=== PATIENT | male | born 1995 | race Two or more races ===

== ENCOUNTER 2021-06-25 00:13 | Emergency (ER) | payer SELFPAY ==
[~2021-06-25] VITALS: Ht 177.8 cm; Wt 90.3 kg
[2021-06-25] MEDS ORDERED: SODIUM CHLORIDE FLUSH 10ML SYR IVF ONE (01:00)
[2021-06-25] MEDS ORDERED: ONDANSETRON 2MG/ML, 2ML IVPush ONE (01:00)
[2021-06-25] MEDS ORDERED: MORPHINE SULFATE 4 MG/ML, 1ML IVPush PRN (01:00)
[2021-06-25 01:26] LABS: BASOPHILS % (AUTO) 1 % (0-1); EOSINOPHILS % (AUTO) 1 % (1-7); LYMPHOCYTES % (AUTO) 19 % (22-44); MEAN CORPUSCULAR HEMOGLOBIN 32.4 pg (27.5-34.5); MEAN CORPUSCULAR HGB CONC 34.6 g/dL (33.2-36.2); MEAN PLATELET VOLUME 7.7 fL (7.4-10.4); MONOCYTES % (AUTO) 9 % (2-9); NEUTROPHILS % (AUTO) 70 % (42-75); PLATELET COUNT 341 x10^3/uL (130-400); RED BLOOD COUNT 5.12 x10^6/uL (4.38-5.82); RED CELL DISTRIBUTION WIDTH 14.2 % (9.4-14.8)
[2021-06-25 01:35] LABS: ALANINE AMINOTRANSFERASE 75 U/L (12-78); ALBUMIN 3.9 g/dL (3.4-5.0); ANION GAP 6 mmol/L (5-15); CALCIUM 8.5 mg/dL (8.5-10.1); CHLORIDE 102 mmol/L (98-107); CREATININE 0.95 mg/dL (0.7-1.3)
[2021-06-25 01:37] LABS: ALKALINE PHOSPHATASE 109 U/L (45-117); BILIRUBIN,TOTAL 0.4 mg/dL (0.2-1.0); TOTAL PROTEIN 8.4 g/dL (6.4-8.2)
[2021-06-25] MEDS ORDERED: ONDANSETRON 2MG/ML, 2ML ONE (02:47)
[2021-06-25] MEDS ORDERED: MORPHINE SULFATE 4 MG/ML, 1ML ONE (02:48)
--- NOTE | 2021-06-25 02:52 | NUR ---
assessment made. IV placed. medicated. patient to CT scan.
--- NOTE | 2021-06-25 02:58 | NUR ---
back from CT Scan. awaiting result.
[2021-06-25 04:27] VITALS: BP 136/82
[2021-06-25] MEDS ORDERED: OMNIPAQUE 350 MG/ML, 100ML BOTTLE ONE (05:24)
== END 2021-06-25 04:40 | disposition home or self-care (01) ==
LOC: ED 00:33
DX: K29.20 Alcoholic gastritis without bleeding (principal); R10.11 Right upper quadrant pain; F10.10 Alcohol abuse, uncomplicated; K29.80 Duodenitis without bleeding; R11.0 Nausea; Z87.891 Personal history of nicotine dependence; Y90.0 Blood alcohol level of less than 20 mg/100 ml
CPT/HCPCS: 36415; 74177; 76700; 80053; 83690; 85025; 96374; 96375; 99285; J2270; J2405; Q9967